=== PATIENT | male | born 1960 | race Caucasian/White ===

== ENCOUNTER 2017-07-22 08:31 | Day surgery (SDC) | payer BC ==
[~2017-07-22 08:31] MED LIST: ceFAZolin 2 GM in Premix Bag 1 BAG IV ONE
[2017-07-22] MEDS ORDERED: Dextrose 5%-Lactated Ringers 1,000 ML IV SCH (09:15)
[2017-07-22] MEDS ORDERED: ceFAZolin 2 GM in Premix Bag 1 BAG IV ONE ×3 (09:15→09:30)
[2017-07-22] MEDS ORDERED: Propofol 200 MG/20 ML SDV ONE (10:00)
[2017-07-22] MEDS ORDERED: Glycopyrrolate 0.2 MG/ML 5 ML MDV ONE (10:00)
[2017-07-22] MEDS ORDERED: Dexamethasone 4 MG/ML SDV ONE (10:00)
[2017-07-22] MEDS ORDERED: Succinylcholine 200 MG/10 ML MDV ONE (10:00)
[2017-07-22] MEDS ORDERED: Neostigmine Methylsulfate 1 MG/ML 5 ML Syringe ONE (10:00)
[2017-07-22] MEDS ORDERED: Rocuronium 50 MG/5 ML Vial ONE (10:00)
[2017-07-22] MEDS ORDERED: Ondansetron 4 MG/2 ML SDV ONE (10:00)
[2017-07-22] MEDS ORDERED: Bupivacaine 0.5%/EPINEPHrine 1:200,000 50 ML MDV ONE (11:00)
--- NOTE | 2017-07-25 11:00 | OR ---
DATE OF PROCEDURE: 07/22/2017 PREOPERATIVE DIAGNOSIS: Epigastric incisional hernia. POSTOPERATIVE DIAGNOSIS: Epigastric incisional hernia. PROCEDURE: Repair of the epigastric incisional hernia with a 6.4-cm in diameter Ventralex mesh patch with straps. SURGEON: Brandon Cerda MD. ANESTHESIA: General endotracheal. INDICATION: This is a 57-year-old white male who, a couple of years ago, underwent an aortic valve replacement. He has an incisional hernia in his epigastrium, presumably from his chest tube. This bothers him. He is here for repair of this. I counseled him for repair of this with mesh including the risks and alternatives, and he gave his informed consent to proceed. DESCRIPTION OF PROCEDURE: After adequate general endotracheal anesthesia was obtained, the patient's abdomen and lower chest were prepped and draped in the usual sterile fashion. Time-out was held. A small incision was made over the hernia. This was carried deep bluntly and sharply to the hernia defect. We dissected the tissue protruding out through the hernia and reduced this back inside. The defect was large enough that the index finger could be placed through it. A 6.4-cm Ventralex mesh patch with straps was obtained. This was placed down underneath the defect. The straps were brought up to bring the mesh against the posterior aspect of the anterior abdominal wall. The straps were oriented longitudinally. They were anchored to the anterior fascia with horizontal mattress stitches of 2 -0 Prolene. The hernia defect was then closed over the mesh with a running stitch of 2- 0 Vicryl. Marcaine 0.5% with epinephrine was infiltrated about the incision. The subcutaneous tissue was closed over the straps with a running stitch of 2-0 Vicryl, 4-0 Vicryl using a subcuticular stitch was placed to approximate the skin, and Dermabond was applied. The anesthesia was reversed. He was extubated and brought to recovery room in a good condition. Brandon Cerda MD /[id number] MTDD
== END 2017-07-22 13:30 | disposition home or self-care (01) ==
LOC: JP.SDS 08:31
PROVIDERS: ATTEND Surgery
DX: K43.2 Incisional hernia without obstruction or gangrene (principal); G47.33 Obstructive sleep apnea (adult) (pediatric); I10 Essential (primary) hypertension; I25.10 Atherosclerotic heart disease of native coronary artery without angina pectoris; K21.9 Gastro-esophageal reflux disease without esophagitis; Z79.82 Long term (current) use of aspirin; Z95.2 Presence of prosthetic heart valve; Z79.899 Other long term (current) drug therapy
CPT/HCPCS: 49560; 49568; C1781; J0330; J0690; J1100; J2405; J2704; J2710; J3010; J7042

== ENCOUNTER 2020-06-20 07:48 | Day surgery (SDC) | payer BC ==
[2020-06-20] MEDS ORDERED: Midazolam 1 MG/ML 2 ML SDV ONE (07:56)
[2020-06-20] MEDS ORDERED: fentaNYL 100 MCG/2 ML SDV ONE (07:56)
[2020-06-20] MEDS ORDERED: Propofol 200 MG/20 ML SDV ONE ×2 (07:56→09:16)
[2020-06-20] MEDS ORDERED: Sodium Chloride 0.9% 1,000 ML IV SCH (08:30)
--- NOTE | 2020-06-20 12:43 | OR ---
DATE OF PROCEDURE: 06/20/2020 SURGEON: Nadir Borrego MD PROCEDURE: Colonoscopy. FINDINGS: Diverticulosis, mild. COMPLICATIONS: None. BLENDING TANK TENDER: None. ANESTHESIA: MAC. PREOPERATIVE DIAGNOSIS: Screening colonoscopy. POSTOPERATIVE DIAGNOSIS: Screening colonoscopy. RISKS: Risks, benefits, alternatives, and limitations including, but not limited to infection, bleeding, and perforation were explained to the patient who wished to proceed. We also discussed false positives and false negatives. PROCEDURE IN DETAIL: The patient was placed in left lateral decubitus position. Digital rectal exam was performed without abnormality. Scope was introduced and advanced atraumatically through the ileocecal valve. A photo was taken of this. The scope was brought back through the ascending, transverse, descending colon, and retroflexed. No evidence of old or new blood. No masses. No polyps. Diverticulosis was described as very mild, limited to sigmoid colon without evidence of diverticulitis or bleeding. No abnormalities on retroflexion. Greater than 10 minutes was spent removing the scope. The patient tolerated the procedure well. Nadir Borrego MD /[id number]
== END 2020-06-20 11:00 | disposition home or self-care (01) ==
LOC: JP.SDS 07:48
PROVIDERS: ATTEND Surgery
DX: Z12.11 Encounter for screening for malignant neoplasm of colon (principal); K57.30 Diverticulosis of large intestine without perforation or abscess without bleeding; I50.9 Heart failure, unspecified; G47.33 Obstructive sleep apnea (adult) (pediatric); K21.9 Gastro-esophageal reflux disease without esophagitis
CPT/HCPCS: J2250; J2704; J3010; J7030

== ENCOUNTER 2022-07-29 11:22 | Emergency (ER) | payer OTHER ==
[2022-07-29] MEDS ORDERED: Enoxaparin 120 MG/0.8 ML Syringe SUBCUT ONE (12:59)
[2022-07-29] MEDS ORDERED: Enoxaparin 150 MG/1 ML Syringe SUBCUT ONE (13:01)
== END 2022-07-29 13:51 | disposition home or self-care (01) ==
LOC: JP.ED 11:22
DX: T81.72XA Complication of vein following a procedure, not elsewhere classified, initial encounter (principal); I80.02 Phlebitis and thrombophlebitis of superficial vessels of left lower extremity; K21.9 Gastro-esophageal reflux disease without esophagitis; E66.9 Obesity, unspecified; Z68.32 Body mass index [BMI] 32.0-32.9, adult; Z79.01 Long term (current) use of anticoagulants; Z79.899 Other long term (current) drug therapy
CPT/HCPCS: 93971; 96372; 99283; J1650